=== PATIENT | male | born 1985 | race Two or more races ===

== ENCOUNTER 2025-01-30 18:36 | Emergency (ER) | payer OTHER ==
[~2025-01-30] VITALS: Ht 170.2 cm; Wt 74.3 kg
--- NOTE | 2025-01-30 19:18 | ED.PDOC ---
History of Present Illness HPI Comments 39y M who presents to the ED for chief complaint of altered mental status, worsening right-sided weakness and chest pain. Per pt , pt started to feel generally weak and disoriented yesterday around 1530. Pt states he woke up this morning feeling disoriented, was getting ready to go to work and states he had syncopal episode at around approx 1100. Patient's states she received a text from him when he woke up around 1600 telling her he had passed out." Pt's states when she arrived home she noticed the patient was slow to respond, and was demonstrating more pronounced right sided weakness. 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 Pt spouse states pt was found to have PFO after CVA in 2021, has residual 5 % deficits to R upper and lower extremity and had surgery to correct the PFO. Pt otherwise had noted TIA in 2022 and was placed on blood thinner but was recently taken off blood thinner by PCP. Pt in the ED, complaining of left-sided upper chest pain radiating to the left neck, is unable to state how long the pain has been present, has noted BP of 142/110 and heart rate of 109 but otherwise has temp of 98.0 F, rr 16 and 02 sat of 95% on room air. Pt otherwise denies any other symptoms at this time. Chief Complaint: Chest Pain Time Seen by MD: 19:10 Reviewed Notes: Medications, Allergies Allergies: Coded Allergies: Oxycodone (Verified Allergy, Severe, 01/30/25) Information Source: Patient, Spouse Mode of Arrival: Ambulatory Past Medical History PAST MEDICAL HISTORY: CVA, TIA Past Medical History (Other): PFO Surgical History (Other): PFO repair Family History Family History: Reviewed,noncontributory to illness Social History Smoker: Non-Smoker Alcohol: Occasionally Drugs: Denies Drug Use Lives In: Home All Other Systems: Reviewed and Negative (see HPI) Physical Exam General Appearance: Mild Distress HEENT: PERRL/EOMI, Other (Pupils and face symmetric. Moist mucous membranes.) Neck: Full Range of Motion, Normal Inspection Respiratory: Lungs Clear, No Accessory Muscle Use, No Respiratory Distress, Normal Breath Sounds Cardiovascular: No Edema, No JVD, Regular Rate/Rhythm Breast Exam: Deferred Gastrointestinal: Non Tender, Soft Genitalia: Deferred Pelvic: Deferred Rectal: Deferred Extremities: Normal inspection, Normal range of motion, Non-tender, No pedal edema Neurologic: Alert (Oriented x4. Slow responses to questions. Right facial weakness. Right upper extremity 3/5 strength, right lower extremity 4/5 strength. Light touch sensation intact all extremities.), Motor Weakness Cerebellar Function: NOT DONE Reflexes: NOT DONE Skin: Dry, Normal Color, Warm Lymphatic: NOT DONE Was a procedure done? Was a procedure done?: No EKG EKG : Comments Sinus rhythm, rate 93, normal intervals, normal axis, possible incomplete right bundle-branch block, upsloping ST elevation in inferior and lateral leads consistent with early repolarization. Differential Dx Considerations may include: CVA, TIA, ACS, VT, alcohol/drug intoxication, among other X-Ray, Labs, Meds, VS Vital Signs Date Time Temp Pulse Resp B/P (MAP) Pulse Ox O2 Delivery O2 Flow Rate FiO2 01/30/25 21:43 80 01/30/25 19:52 93 01/30/25 19:48 91 11 96 Nasal Cannula* 2 28 01/30/25 19:48 96 14 156/102 (120) 100 01/30/25 18:46 93 01/30/25 18:40 98.0 109 16 142/110 95 98.0 Lab Test 01/30/25 19:48 01/30/25 18:55 01/30/25 18:42 Range/Units Troponin I High Sensitivity 4 4 </=54 ng/L White Blood Count 7.5 4.4-10.8 10^3/uL Red Blood Count 5.10 4.5-5.90 10^6/uL Hemoglobin 17.6 H 13.5-17.5 g/dL Hematocrit 49.3 41.0-53.0 % Mean Corpuscular Volume 96.6 80.0-100.0 fL Mean Corpuscular Hemoglobin 34.5 H 28.0-32.0 pg Mean Corpuscular Hemoglobin Concent 35.7 32.0-36.0 g/dL Red Cell Distribution Width 13.7 11.8-14.3 % Platelet Count 336 140-450 10^3/uL Mean Platelet Volume 6.1 L 6.9-10.8 fL Neutrophils (%) (Auto) 54.9 37.0-80.0 % Lymphocytes (%) (Auto) 33.9 10.0-50.0 % Monocytes (%) (Auto) 9.5 0.0-12.0 % Eosinophils (%) (Auto) 1.3 0.0-7.0 % Basophils (%) (Auto) 0.4 0.0-2.0 % Neutrophils # (Auto) 4.1 1.6-8.6 10 ^3/uL Lymphocytes # (Auto) 2.5 0.4-5.4 10 ^3/uL Monocytes # (Auto) 0.7 0-1.3 10 ^3/uL Eosinophils # (Auto) 0.1 0-0.8 10 ^3/uL Basophils # (Auto) 0 0-0.2 10 ^3/uL Nucleated Red Blood Cells 0.2 % D-Dimer, Quantitative < 0.19 0.0-0.49 mg/L FEU Sodium Level 145 136-145 mmol/L Potassium Level 4.0 3.5-5.1 mmol/L Chloride Level 111 H 98-107 mmol/L Carbon Dioxide Level 23 20-31 mmol/L Anion Gap 11 5-15 Blood Urea Nitrogen 7 L 9-23 mg/dL Creatinine 1.10 0.700-1.30 mg/dL Glomerular Filtration Rate Calc 88 >90 mL/min BUN/Creatinine Ratio 6.4 L 10.0-20.0 Serum Glucose 95 74-106 mg/dL POC Glucose 100 70-106 mg/dl Calcium Level 8.8 8.7-10.4 mg/dL B-Type Natriuretic Peptide 7.11 0-100 pg/mL Lipase 41 12-53 U/L Plasma/Serum Blood Alcohol 340.1 H <10 mg/dL Current Medications Medications (Trade) Dose Ordered Sig/Marily Route Start Time Stop Time Status Last Admin Lorazepam (Ativan Inj) 1 mg ONCE ONCE IV 01/30/25 19:45 01/30/25 19:46 DC 01/30/25 19:46 Diphenhydramine HCl (Benadryl Injection) 50 mg ONCE ONCE IV 01/30/25 19:45 01/30/25 19:46 DC 01/30/25 19:46 Aspirin 325 mg ONCE ONCE PO 01/30/25 22:00 01/30/25 22:01 DC 01/30/25 22:16 [place] [id number] Ph: [phone] DIAGNOSTIC IMAGING Diagnostic Imaging Report : [id number] Signed PATIENT: AI DRISCOLL ACCT: [id number] UNIT: [id number] : 1985 LOC: ER ROOM / BED: / AGE / SEX: 39 / M ADM STATUS: REG ER SERVICE 03 ORDERING PHYSICIAN: JOSSY GUTHRIE MD PROCEDURE(s): [place] - ANGIO HEAD/Neck REASON: worsening R sided weakness, h/o cva ORDER NUMBER(s): [id number], ACCESSION NUMBER(s): [id number] Procedure: CT ANGIO HEAD/Neck HISTORY: worsening R sided weakness, h/o cva Comparison Study: None Exam Date:01/30/2025 07:49 PM TECHNIQUE: CTA head without and with intravenous contrast. CTA neck with intravenous contrast. 3D image postprocessing was performed and images were used for interpretation and reporting. Radiation Dose : CT Dose: CTDI volume is 21.99 mGy. Dose-length product is 1385.57 mGy*cm FINDINGS: CTA head: There is normal enhancement of the visualized distal internal carotid, anterior and middle cerebral arteries. The vertebral, basilar, cerebellar and posterior cerebral arteries are within normal limits. The early parenchymal enhancement is grossly unremarkable. The visualized intracranial venous structures are grossly unremarkable. CTA neck: The visualized thoracic aortic arch and proximal great vessels are unremarkable. The left common, internal and external carotid arteries are within normal limits. The right common, internal and external carotid arteries are within normal limits. The cervical segments of the right and left vertebral arteries are within normal limits. The limited visualized lung apices are clear. The surrounding soft tissues and osseous structures are otherwise unremarkable. IMPRESSION: 1. No acute vascular abnormality identified. All CT scans at this medical facility are performed using dose modulation techniques as appropriate to a performed exam including the following: Automated exposure control was utilized; adjustment of the MA and/or KV according to patient size; and use of iterative reconstruction technique. ATED BY: KENNY MORALES MD DICTATED DATE/TIME: 01/30/252039 SIGNED BY: KENNY MORALES MD SIGNED DATE/TIME: 01/30/252039 CC: [facility] [id number] [place] [id number] Ph: [phone] DIAGNOSTIC IMAGING Diagnostic Imaging Report : [id number] Signed PATIENT: IA DRISCOLL ACCT: [id number] UNIT: [id number] : 1985 LOC: ER ROOM / BED: / AGE / SEX: 39 / M ADM STATUS: REG ER SERVICE 52 ORDERING PHYSICIAN: JOSSY GUTHRIE MD PROCEDURE(s): CXRP - CHEST PORTABLE REASON: cp ORDER NUMBER(s): [id number], ACCESSION NUMBER(s): [id number] CLINICAL HISTORY: cp TECHNIQUE: Single view of the chest was obtained. COMPARISON: None FINDINGS: The heart size and pulmonary vasculature are normal. The lungs are clear. IMPRESSION: NO ACUTE CARDIOPULMONARY PROCESS. ATED BY: KENNY MORALES MD DICTATED DATE/TIME: 01/30/252030 SIGNED BY: KENNY MORALES MD SIGNED DATE/TIME: 01/30/252030 CC: X-Ray, Labs, Meds, VS Comment 39-year-old male with a history of PFO status post repair and CVA with residual right-sided weakness presenting with chest pain, altered mental status and worsening right-sided weakness Vitals remarkable for heart rate 109, BP 142/110 Exam remarkable for slowness to respond, right facial weakness, right pronator drift. Right upper extremity 3/5 motor strength, right lower extremity 4/5 motor strength. Note: Patient's states weakness is much more pronounced than baseline. Rhythm strip independently interpreted by me: Sinus rhythm, rate 93, no ectopy. CT angio head and neck unremarkable Chest x-ray unremarkable CBC, basic metabolic panel, D-dimer, BNP and 2 serial troponins unremarkable. Serum alcohol level 340.1. UA and urine drug screen pending ER course: Code stroke was immediately initiated. I discussed the case with Dr. Patel, stroke neurologist who performed tele evaluation. Thrombolytics were not recommended. Stat noncontrast head CT was ordered, however was canceled by Radiology for unknown reasons. I was not advised the noncontrast head CT was canceled. Radiology instead only performed the CT angio head and neck. Patient received Benadryl 50 mg IV and Ativan 1 mg IV for sedation in order for CT to be performed. Patient also received aspirin 325 mg p.o. On re-evaluation, patient was sleeping with stable vitals. There were no new neurologic changes. Case discussed with Dr. Vega at [facility], who will arrange for the patient to be transferred to [place]. Authorization [id number] Time of 1ST Reevaluation: 22:38 Reevaluation 1ST: Unchanged Patient Education/Counseling: Diagnosis, Treatment, Prognosis, Need For Follow Up Family Education/Counseling: Diagnosis, Treatment, Prognosis, Need For Follow Up SEPSIS Sepsis Screen Date sepsis recognized/suspect: Jan 30, 2025 Time Sepsis recognized/suspect: 1841 Recent Procedure: No On Antibiotic Therapy: No Respiratory Rate >20: No Heart Rate >90: No Temp<36 C (96.8 F) or >38.3 C: No SBP <90 or MAP <65 mmHG: No New Acute Mental Status Change: No Is the patient on CPAP, BIPAP,: No Physician Orders Chest Portable (01/30/25 18:53) Urinalysis (01/30/25 18:53) Angio Head/Neck (01/30/25 19:04) Drug Screen (01/30/25 19:40) Vital Signs Date Time Temp Pulse Resp B/P (MAP) Pulse Ox O2 Delivery O2 Flow Rate FiO2 01/30/25 21:43 80 01/30/25 19:52 93 01/30/25 19:48 91 11 96 Nasal Cannula* 2 28 01/30/25 19:48 96 14 156/102 (120) 100 01/30/25 18:46 93 01/30/25 18:40 98.0 109 16 142/110 95 98.0 Laboratory Tests Test 01/30/25 18:42 White Blood Count 7.5 10^3/uL (4.4-10.8) Medications Medications Dose Ordered Sig/Marily Route Start Time Stop Time Status Last Admin Dose Admin Aspirin 325 mg ONCE ONCE PO 01/30/25 22:00 01/30/25 22:01 DC 01/30/25 22:16 Diphenhydramine HCl 50 mg ONCE ONCE IV 01/30/25 19:45 01/30/25 19:46 DC 01/30/25 19:46 Lorazepam 1 mg ONCE ONCE IV 01/30/25 19:45 01/30/25 19:46 DC 01/30/25 19:46 Departure 1 Departure Time of Disposition: 22:39 Impression: Primary Impression: Right sided weakness Additional Impressions: Alcohol intoxication Chest pain Disposition: 02 SHORT TERM HOSPITAL Admit to: Tele Condition: Guarded Critical Care Note Critical Care Time?: No Stability Stability form required: No Heart Score Heart Score: Heart Score Response (Comments) Value History Slightly Suspicious 0 EKG Repolarization Disturb 1 Age <45 0 Risk Factors 1 or 2 risk factors 1 Troponin Normal limit 0 Total 2 I personally scribed for JOSSY GUTHRIE MD ([email or web address]) on 01/30/25 at 19:18. Electronically submitted by Jovanni Jean ([facility]). I personally scribed for JOSSY GUTHRIE MD ([email or web address]) on 01/30/25 at 19:33. Electronically submitted by Jovanni Jean ([facility] I personally scribed for JOSSY GUTHRIE MD ([email or web address]) on 01/30/25 at 21:39. Electronically submitted by Jovanni Jean ([facility]). JOSSY GUTHRIE MD Jan 30, 2025 19:18
[2025-01-30] MEDS: IOHEXOL 350 MG/ML 100ML IJ ONE (19:26)
[2025-01-30] MEDS: LORazepam 2MG/ML-1ML VIAL IV ONE (19:46)
[2025-01-30] MEDS: diphenhdrAMINE HCL 50 MG/1 ML VL IV ONE (19:46)
[2025-01-30] MEDS: diphenhdrAMINE HCL 50 MG/1 ML VL ONE (19:47)
[2025-01-30] MEDS: LORazepam 2MG/ML-1ML VIAL ONE (19:47)
[2025-01-30 19:48] VITALS: PULSE 91; RESP 11; O2SAT 96
[2025-01-30 20:05] LABS: Hematocrit 49.3 % (41.0-53.0); Hemoglobin 17.6 g/dL (13.5-17.5); Mean Corpuscular Hemoglobin 34.5 pg (28.0-32.0); Mean Corpuscular Volume 96.6 fL (80.0-100.0); Nucleated Red Blood Cells % 0.2 %
--- NOTE | 2025-01-30 20:14 | ECG ---
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
[2025-01-30 20:20] LABS: Potassium 4.0 mmol/L (3.5-5.1)
[2025-01-30 20:21] LABS: Anion Gap 11 (5-15); Carbon Dioxide 23 mmol/L (20-31)
[2025-01-30 20:22] LABS: Calcium 8.8 mg/dL (8.7-10.4)
[2025-01-30 20:26] LABS: Glucose 95 mg/dL (74-106)
[2025-01-30 20:27] LABS: BUN/Creatinine Ratio 6.4 (10.0-20.0); Blood Urea Nitrogen 7 mg/dL (9-23); Chloride 111 mmol/L (98-107); Lipase 41 U/L (12-53); Sodium 145 mmol/L (136-145)
--- NOTE | 2025-01-30 20:34 | DVH ---
CLINICAL HISTORY: cp TECHNIQUE: Single view of the chest was obtained. COMPARISON: None FINDINGS: The heart size and pulmonary vasculature are normal. The lungs are clear. IMPRESSION: NO ACUTE CARDIOPULMONARY PROCESS.
--- NOTE | 2025-01-30 20:44 | DVH ---
Procedure: CT ANGIO HEAD/Neck HISTORY: worsening R sided weakness, h/o cva Comparison Study: None Exam Date:01/30/2025 07:49 PM TECHNIQUE: CTA head without and with intravenous contrast. CTA neck with intravenous contrast. 3D angel Dizzion postprocessing was performed and images were used for interpretation and reporting. Radiation Dose : CT Dose: CTDI volume is 21.99 mGy. Dose-length product is 1385.57 mGy*cm FINDINGS: CTA head: There is normal enhancement of the visualized distal internal carotid, anterior and middle cerebral a rteries. The vertebral, basilar, cerebellar and posterior cerebral arteries are within normal limits . The early parenchymal enhancement is grossly unremarkable. The visualized intracranial venous struc tures are grossly unremarkable. CTA neck: The visualized thoracic aortic arch and proximal great vessels are unremarkable. The left common, int ernal and external carotid arteries are within normal limits. The right common, internal and external carotid arteries are within normal limits. The cervical segments of the right and left vertebral art eries are within normal limits. The limited visualized lung apices are clear. The surrounding soft ti ssues and osseous structures are otherwise unremarkable. IMPRESSION: 1. No acute vascular abnormality identified. All CT scans at this medical facility are performed using dose modulation techniques as appropriate t o a performed exam including the following: Automated exposure control was utilized; adjustment of th e MA and/or KV according to patient size; and use of iterative reconstruction technique.
[2025-01-31 02:44] VITALS: BP 126/85; PULSE 86; RESP 14; TEMP 97.5; O2SAT 95
--- NOTE | 2025-02-02 13:25 | ECG ---
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
--- NOTE | 2025-02-02 13:26 | ECG ---
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
== END 2025-01-31 03:00 | disposition short-term general hospital (02) ==
LOC: ER 18:36
DX: R07.89 Other chest pain (principal); R53.1 Weakness; F10.129 Alcohol abuse with intoxication, unspecified; Z88.5 Allergy status to narcotic agent; Z87.74 Personal history of (corrected) congenital malformations of heart and circulatory system; Z79.01 Long term (current) use of anticoagulants; Y90.8 Blood alcohol level of 240 mg/100 ml or more
CPT/HCPCS: 36415; 70496; 70498; 71045; 80048; 80320; 82947; 83690; 83880; 84484; 85025; 85379; 93005; 96374; 96375; 99285; J1200; J2060; Q9967; 82962